=== PATIENT | female | born 1960 | race Caucasian/White ===

== ENCOUNTER 2017-09-22 13:59 | Emergency (ER) | payer OTHER ==
[2017-09-22 14:09] VITALS: BP 175/104
[2017-09-22] MEDS ORDERED: Aspirin Low Dose CHEW TAB* 81 MG PO ONE (14:23)
--- NOTE | 2017-09-22 14:31 | UC ---
Cardiac HPI - HPI Summary HPI Summary: 57 yo female with chest pressure x 2 days URI symptoms > 1 week nausea - History of Current Complaint Chief Complaint: UCRespiratory Stated Complaint: RESPIRATORY Hx Obtained From: Patient Onset/Duration: Gradual Onset, Lasting Days Initial Severity: Mild Current Severity: Mild Pain Intensity: 3 Chest Pain Location: Upper Sternal Character: Pressure/Squeezing Aggravating Factor(s): Nothing Alleviating Factor(s): Nothing Associated Signs & Symptoms: Positive: Chest Pain, Dizziness - Allergy/Home Medications Allergies/Adverse Reactions: Allergies Allergy/AdvReac Type Severity Reaction Status Date / Time No Known Allergies Allergy Verified 09/22/17 14:01 Home Medications: Home Medications Amoxicillin PO (*) [Amoxicillin 500 MG CAP*] 500 mg PO BID 09/22/17 [History Confirmed 09/22/17] Phenylephrine/Diphenhydramine [Dimetapp Cold & Congest Liquid] 20 ml PO Q4HR PRN 09/22/17 [History Confirmed 09/22/17] PMH/Surg Hx/FS Hx/Imm Hx Previously Healthy: Yes - Surgical History Surgical History: Yes Surgery Procedure, Year, and Place: Left Total Knee Replacement 2014 - Family History Known Family History: Negative: Cardiac Disease, Hypertension - Social History Alcohol Use: Occasionally Substance Use Type: None Smoking Status (MU): Never Smoked Tobacco Review of Systems Constitutional: Negative Skin: Negative Eyes: Negative ENT: Negative Respiratory: Cough Cardiovascular: Chest Pain Gastrointestinal: Negative Genitourinary: Negative Motor: Negative Neurovascular: Negative Musculoskeletal: Negative Neurological: Negative Psychological: Negative Is Patient Immunocompromised?: No All Other Systems Reviewed And Are Negative: Yes Physical Exam Triage Information Reviewed: Yes Appearance: Well-Appearing, No Pain Distress, Well-Nourished Vital Signs: Initial Vital Signs Temp 98.7 F 09/22/17 14:04 Pulse 84 09/22/17 14:04 Resp 20 09/22/17 14:04 BP 175/104 09/22/17 14:04 Pulse Ox 97 09/22/17 14:04 Vital Signs Reviewed: Yes Eyes: Positive: Conjunctiva Clear ENT: Positive: Pharynx normal, Uvula midline. Negative: Pharyngeal erythema, Nasal congestion, Nasal drainage, TMs normal, Trismus, Muffled voice, Hoarse voice, Sinus tenderness Neck: Positive: Supple, Nontender Respiratory: Positive: No respiratory distress, No accessory muscle use, Wheezing - scatterred. Negative: Respiratory distress, Decreased breath sounds , Accessory muscle use Cardiovascular: Positive: RRR, No Murmur Abdomen Description: Positive: Nontender, No Organomegaly, Soft Musculoskeletal: Positive: ROM Intact, No Edema Neurological: Positive: Alert Psychological Exam: Normal Skin Exam: Normal Diagnostics - EKG Cardiac Rate: NL Cardiac Rhythm: Sinus: Normal Ectopy: None ST Segment: Non-Specific - 1mmST depression v3-v5, prolonged QT - Assessment/Plan Course Of Treatment: discussed with Jan Bliss NP at [facility]. pt declines EMS transfer - Clinical Impression Provider Diagnoses: chest pressure of uncertain cause Discharge - Sign-Out/Discharge Documenting (check all that apply): Discharge - Discharge Plan Condition: Stable Disposition: TRANS HIGHER LVL OF CARE FAC Referrals: Sulaiman Wells MD [Primary Care Provider] - Additional Instructions: To ER They are expecting you - Billing Disposition and Condition Condition: STABLE Disposition: EMTALA
== END 2017-09-22 14:34 | disposition short-term general hospital (02) ==
LOC: UCCORT 13:59
DX: R07.89 Other chest pain (principal); Z79.2 Long term (current) use of antibiotics; Z82.49 Family history of ischemic heart disease and other diseases of the circulatory system
CPT/HCPCS: 93005; 99212; A9270-GY; G0463

== ENCOUNTER 2019-07-15 07:49 | Emergency (ER) | payer BC ==
--- NOTE | 2019-07-15 09:10 | UC ---
Respiratory Complaint HPI - HPI Summary HPI Summary: Patient is a 59-year-old female who is healthy adult prescribed medication. Patient states last Saturday she started to have cough and congestion. Patient states she was seen here on Saturday where she was clinically diagnosed with hereditary infection, pneumonia. Patient was started on doxycycline, prednisone , albuterol, and Tessalon Perles. Patient states she feels like she is getting worse. Patient states she continues to have cough. States it is intermittently productive of yellow-green sputum. Patient states she can't sleep related to the cough. Patient denies nausea or vomiting. Patient denies rash. Patient denies documented fever but tactile felt warm. Patient denies sick contacts. She did not get the flu vaccine this year. Patient has not taken any additional [id number] medication although than occasional ibuprofen for headache with coughing. PEG tube is not humidified. Denies sick contacts. Patient's medications as noted in the EMR by triage reviewed this visit - History of Current Complaint Chief Complaint: UCRespiratory Stated Complaint: PNEUMONIA NOT GETTING BETTER Time Seen by Provider: 07/15/19 09:10 Hx Obtained From: Patient ?: No Severity Initially: Mild Severity Currently: Mild Pain Intensity: 0 - Allergies/Home Medications Allergies/Adverse Reactions: Allergies Allergy/AdvReac Type Severity Reaction Status Date / Time No Known Allergies Allergy Verified 07/15/19 08:00 PMH/Surg Hx/FS Hx/Imm Hx Previously Healthy: Yes - Surgical History Surgical History: Yes Surgery Procedure, Year, and Place: Left TKA, 2015, [place] - Family History Known Family History: Positive: Non-Contributory Negative: Cardiac Disease, Hypertension - Social History Occupation: Employed Full-time Lives: With Family Alcohol Use: Occasionally Substance Use Type: None Smoking Status (MU): Never Smoked Tobacco Have You Smoked in the Last Year: No Review of Systems All Other Systems Reviewed And Are Negative: Yes Constitutional: Positive: Fever - Tactile, Fatigue ENT: Positive: Sinus Pain/Tenderness Respiratory: Positive: Cough Cardiovascular: Positive: Negative Physical Exam - Summary Physical Exam Summary: Vital Signs Reviewed: Yes A+Ox3, no distress, harsh, intermittent cough Eyes: Conjunctiva Clear, KOLBY. EOM intact and full ENT: Hearing grossly normal TM x 2 clear, mmoist, uvula midline, no exudate, no erythema Neck: Positive: Supple Respiratory: Positive: No respiratory distress, No accessory muscle use coarse intermittent cough, scattered wheeze, no rhonci Cardiovascular: RRR nl s1, s2 no m/r CBT <2 sec abd soft + BS nt/nd no guarding, no distension Musculoskeletal Exam: [place] x 4 without difficulty Strength Intact, ROM Intact Neurological: Positive: Alert, + sensation throughout Psychological: Positive: Normal Response To examiner Skin: Positive: no rash, no ecchymosis Triage Information Reviewed: Yes Vital Signs: Initial Vital Signs Temp 98.4 F 07/15/19 07:56 Pulse 88 07/15/19 07:56 Resp 18 07/15/19 07:56 BP 145/91 07/15/19 07:56 Pulse Ox 96 07/15/19 07:56 Diagnostics - Radiology No standard instances Radiology Interpretation Completed By: Radiologist - Patient Name: DANDY RHODES Medical Record#: [id number] Ordering Physician: Verito Hartmann MD Acct.#: [id number] : Age: 59 Sex: F Location: [facility] Exam Date: 07/15/19915 ADM Status: REG ER Order Information: CHEST PA & LAT 2 VWS Accession Number: [id number] CPT: 59549 Indication: Cough, wheezing. 2 views of the chest demonstrate no mediastinal shift. Heart is of normal size and configuration. Lung rodriges appear clear. IMPRESSION: No active cardiopulmonary disease is noted. <Electronically signed by Hannah Nair MD in OV> 07/15/19925 Dictated By: Hannah Nair MD Dictated Date/ Time: 07/15/19925 Transcribed Date/Time: 07/15/19925 Copy to: CC:Verito Hartmann MD; Sulaiman Wells MD Imaging - [facility] - [facility] [address] [address] ph ([phone]) ph ([phone]) ph ([phone]) This report is only to be considered final once signed by the Provider(s) as displayed in the "< Electronically Signed by >" field (s). Absence of a signature indicates the report is in a draft status and still needs to be finalized. In the event this document was created by someone other than the signing Provider, the individual initiating the document will be listed in the "Entered by:" or "Dictated by:" rodriges. 1 of 1 Re-Evaluation - Re-Evaluation First Eval Comment: pt with less coughing s/p neb. reviewed with pt albuterol - will give areochamber. humidfied air. hydate. robitussin with codeine Rx. return precautions. pt has appt with pcp scheduled for tomorrow - will change to / Sat Respiratory Course/Dx - Course Course Of Treatment: Patient presents to urgent care for evaluation of ongoing cough. Patient was evaluated on Saturday diagnosed clinically with respiratory infection/pneumonia. Patient was put on antibiotic's prednisone and steroids. Patient states he continues to feel ill. States her coughing seems like is getting worse. Patient with decreased sleep due to the cough. Patient does report a tactile fever on exam vital signs are stable. Patient does have a harsh intermittent cough with scattered diffuse respiratory wheezes. Patient appears tired but not toxic. We'll check a chest x-ray, influenza, DuoNeb and reassessed. Of note, patient did not have a AeroChamber so we'll make sure she has at the conclusion of today's visit. Patient comfortable and in agreement with plan. Pt's BP slighly elevated - recommend f/u with PCP as scheduled this week - Differential Dx/Diagnosis Provider Diagnosis: Bronchitis Discharge ED - Sign-Out/Discharge Documenting (check all that apply): Patient Departure All imaging exams completed and their final reports reviewed: Yes - Discharge Plan Condition: Stable Disposition: HOME Prescriptions: guaiFENesin/CODIENE 100mg/10mg [Robitussin AC 100Mg/10Mg in 5 ml] 10 ml PO Q6HR #150 [facility] Patient Education Materials: Acute Bronchitis (ED) Forms: *Work Release Referrals: Sulaiman Wells MD [Primary Care Provider] - Additional Instructions: -Take antibiotics and prednisone exactly as prescribed until gone -Use your albuterol puffer - 2 puffs every 4 hours for the next 2 days - then as needed - use aerochamber with your inhaler -Stay well hydrated - avoid excess caffeine and all alcohol - eat regular, healthy meals - - humidify the air in the room where you sleep - boil water, run a hot steam shower, vaporizer, cups of water by heat register - okay to take over the counter decongestant and cough medication - Okay to take tessalon pearls as prescribed. You have been given a prescription for Robitussin with codeine - this medication contains a narcotic - do not drive, operate machinery, drink alcohol while taking this medication, - humidify the air in the room where you sleep - boil water, run a hot steam shower, vaporizer, cups of water by heat register -- These infections are spread by secretions - do NOT share eating or drinking utensils - clean items you share with other people such as cell phones, computer mouse, TV remote, computer tablets,etc.. Once you have been antibiotics for 2 days, change your toothbrush and your pillowcase. -Contact your doctor to arrange a follow-up appointment this week. Call your doctor, return here or go to the emergency department with any questions or concerns - Billing Disposition and Condition Condition: STABLE Disposition: Home
[2019-07-15] MEDS ORDERED: Albuterol/Ipratropium NEB.SOL* Albuterol 2.5 MG/Ipratropium 0.5 MG 3 ML INH ONE (09:16)
[2019-07-15 09:43] LABS: Influenza A Molecular NEGATIVE (Negative); Influenza B Molecular NEGATIVE (Negative)
[2019-07-15 10:14] VITALS: BP 151/82
== END 2019-07-15 10:20 | disposition home or self-care (01) ==
LOC: UCCORT 07:49
DX: J10.1 Influenza due to other identified influenza virus with other respiratory manifestations (principal); R09.82 Postnasal drip
CPT/HCPCS: 71046; 99212; A9270-GY; G0463